=== PATIENT | male | born 1955 | race Caucasian/White ===

== ENCOUNTER 2017-01-16 07:08 | Emergency (ER) | payer OTHER ==
[~2017-01-16] VITALS: Ht 162.6 cm; Wt 70.5 kg
[~2017-01-16 07:08] MED LIST: Artane; DIAZ5TAB4 PO; DICL75TA2 PO; OMEP20CA16 PO; SIN25100 PO; [UNRECOGNIZED DRUG - OTHER]; sinemet; valium
[2017-01-16 07:11] VITALS: Ht 162.6 cm; Wt 70.5 kg
[2017-01-16] MEDS ORDERED: SOD CHLORIDE 0.9% 1,000 ML IV STA (07:39)
[2017-01-16] MEDS ORDERED: DIPHENHYDRAMINE 50 MG INJ IV STA (07:39)
[2017-01-16] MEDS ORDERED: LORAZEPAM 2 MG INJ IV STA (07:39)
--- NOTE | 2017-01-16 08:29 | ERD ---
ER Documentation Chief Complaint Date/Time DATE: 01/16/17 TIME: 08:21 Chief Complaint medication reaction ( vomitting) HPI This is a 62-year-old male with history of Parkinson's disease presenting to the emergency department complaining of abnormal tongue and lip movements and vomiting since this morning. Patient was seen at [facility] yesterday and patient was given a new prescription Comtan (entacapone) and they increased his carbidopa and levodopa dose. He took the medication at 1 AM last night and woke up vomiting 5 times and started having abnormal tongue movements. Patient denies any abdominal pain, chest pain or shortness of breath. ROS All systems reviewed and are negative except as per history of present illness. Medications Home Meds Reported Medications Diclofenac Sodium* (Diclofenac Sodium*) 75 Mg Tablet.dr, 75 MG PO BID, #60 TAB 10/05/15 Diazepam* (Diazepam*) 5 Mg Tablet, 5 MG PO DAILY, TAB 10/05/15 Carbidopa-Levodopa* (Sinemet*) 25-100 Mg Tab, 1 TAB PO QID, TAB 10/05/15 [Artane] No Conflict Check 10/05/15 [sinemet] No Conflict Check 10/05/15 [voltraren] No Conflict Check 10/05/15 [valium] No Conflict Check 10/05/15 Omeprazole* (Omeprazole*) 20 Mg Capsule.dr, 20 MG PO, #60 CAP 10/05/15 Allergies Allergies: Coded Allergies: No Known Allergy (Unverified , 10/05/15) PMhx/Soc History of Surgery: Yes (BILATERAL KNEE LIGAMENT REPAIR) Hx Neurological Disorder: Yes (parkinsons ) Hx Miscellaneous Medical Probl: Yes (PARKINSON'S, ARTHRITIS) Hx Alcohol Use: No Hx Substance Use: No Hx Tobacco Use: No Physical Exam Vitals Vital Signs Date Time Temp Pulse Resp B/P Pulse Ox O2 Delivery O2 Flow Rate FiO2 01/16/17 07:11 98.1 105 19 144/86 100 Physical Exam Const: Well-developed well-nourished no acute distress Head: Atraumatic Eyes: Normal Conjunctiva ENT: Normal External Ears, Nose Patient has signs of dry mouth, abnormal tongue and lip movements. Neck: Full range of motion..~ No meningismus. Resp: Clear to auscultation bilaterally Cardio: Regular rate and rhythm, no murmurs Abd: Soft, non tender, non distended. Normal bowel sounds Skin: No petechiae or rashes Back: No midline or flank tenderness Ext: No cyanosis, or edema Neur: Awake and alert, tremor in hands Psych: Medically anxious Results 24 hrs Current Medications Medications (Trade) Dose Ordered Sig/Pedro Route PRN Reason Start Time Stop Time Status Last Admin Dose Admin Lorazepam (Ativan) 1 mg ONCE STAT IV 01/16/17 07:39 01/16/17 07:40 DC 01/16/17 07:52 Diphenhydramine HCl 50 mg 50 mg ONCE STAT IV 01/16/17 07:39 01/16/17 07:40 DC 01/16/17 07:52 Sodium Chloride (NS) 1,000 ml @ 1,000 mls/hr Q1H STAT IV 01/16/17 07:39 01/16/17 08:38 DC 01/16/17 07:52 Lorazepam (Ativan) 0.5 mg ONCE ONCE IV 01/16/17 09:30 01/16/17 09:31 DC 01/16/17 09:14 Procedures/MDM This is a 62-year-old male with history of Parkinson's disease presenting to the emergency department complaining of abnormal tongue and lip movements and vomiting since this morning. Patient was seen at [facility] yesterday and patient was given a new prescription Comtan (entacapone) and they increased his carbidopa and levodopa dose, in which he took the medications last at 1am. Patient like has acute dystonic reaction versus tardive dyskinesia or other dyskinesia conditions from Comtan. In the ED, IV access established. Patient was given 1 L fluids. He was given 50 mg of Benadryl and 1.5mg Ativan, I have reassessed the patient and he significantly feels a lot better. It was likely a acute dystonic reaction. I have consulted my supervising physician Dr. Farley, in which he suggested patient to discontinue the [place] and continue the carbidopa and levodopa and for him to follow-up with his primary care physician to get a referral to see a neurologist soon as possible. Patient is stable for discharge for home with precautions to return to the emergency room for any worsening signs or symptoms. He understands and agrees with this plan Departure Diagnosis: Primary Impression: Adverse reaction to drug Additional Impression: Dyskinesia Condition: Stable REBECCA CHERY PA-C January 16, 2017 08:29
[2017-01-16] MEDS ORDERED: LORAZEPAM 2 MG INJ IV ONE (09:30)
== END 2017-01-16 10:00 | disposition home or self-care (01) ==
LOC: FTE 07:08
DX: G24.9 Dystonia, unspecified (principal); T42.8X5A Adverse effect of antiparkinsonism drugs and other central muscle-tone depressants, initial encounter; G20 Parkinson's disease
CPT/HCPCS: 96374; 96375; 96376; J1200; J2060; J7030; Z7502

== ENCOUNTER 2017-01-22 14:02 | Emergency (ER) | payer OTHER ==
[~2017-01-22] VITALS: Wt 69.0 kg
[2017-01-22] MEDS ORDERED: CHLORDIAZEPOXIDE 25 MG CAP PO ONE (17:00)
[2017-01-22] MEDS ORDERED: CHLO25CA9 PO (17:23)
--- NOTE | 2017-01-24 05:11 | ERD ---
DATE OF SERVICE: 01/22/2017 HISTORY OF PRESENT ILLNESS: This 62-year-old male comes to the emergency room because he quit drink ing again and is worried about possible alcohol withdrawals. He has a history of alcoholism. He al so has Parkinson disease and has a resting tremor at baseline. He denies any hallucinations. He de nies any nausea, vomiting and denies pain currently. He has never suffered from delirium tremens. He seems to be asking for help with stopping drinking. He was a daily drinker, and his last drink w as the day before yesterday. REVIEW OF SYSTEMS: A 10-point review of systems negative except as in the HPI. PAST MEDICAL HISTORY: Parkinson's disease, arthritis. PAST SURGICAL HISTORY: Bilateral knee ligament repair. SOCIAL HISTORY: He has used alcohol regularly for some time on and off. Denies tobacco, alcohol, a nd other drugs. FAMILY HISTORY: Noncontributory. PHYSICAL EXAMINATION: VITAL SIGNS: Temperature 97.3, pulse 95, blood pressure 120/89, respirations 17, oxygen saturation 99% on room air. GENERAL: No acute distress. HEENT: Normocephalic, atraumatic. Mucous membranes of the mouth are moist. CARDIAC: Regular rate and rhythm. No murmurs. LUNGS: Clear to auscultation bilaterally. EXTREMITIES: No cyanosis or edema. The patient does have bilateral resting tremor that improves wi th intended movement. NEUROLOGIC: Alert and oriented x3, no focal deficits. PSYCHIATRIC: Calm and without apparent depression. EMERGENCY DEPARTMENT COURSE AND MEDICAL DECISION MAKING: The patient has no signs of alcohol withdr awals currently. He has never had delirium tremens. He does not have any signs of current delirium tremens. Here to help him with his renewed intention to quit alcohol. We gave him a 100 mg Libriu m pill in the emergency room. I am going to discharge him with a Librium taper as well. The patien t's daughter arrived in the ER, and the patient and daughter both agree with this plan. The patient is going to be accompanying his daughter home, and she will help care for him. I am discharging [facility] primary care followup within the next 2 to 3 days. I also instructed him and the daughter to virgil ng him back to the emergency room if he starts to have any kind of hallucinations or neurological pr oblems or develops any shaking that is beyond his Parkinson's or cannot tolerate p.o. DISCHARGE DIAGNOSIS: Alcohol withdrawal. DISPOSITION: Home in stable condition. Dictated By: CARL DORMAN Conf#: [id number] DID#: [id number]
== END 2017-01-22 17:51 | disposition home or self-care (01) ==
LOC: E/R 14:02
DX: F10.239 Alcohol dependence with withdrawal, unspecified (principal); G20 Parkinson's disease
CPT/HCPCS: 99283

== ENCOUNTER 2017-02-05 12:53 | Emergency (ER) | payer OTHER ==
[~2017-02-05] VITALS: Ht 157.5 cm; Wt 68.5 kg
[~2017-02-05 12:53] MED LIST changes: +CHLO25CA9 PO
[2017-02-05 13:00] VITALS: Ht 157.5 cm; Wt 68.5 kg
[2017-02-05] MEDS ORDERED: SOD CHLORIDE 0.9% 1,000 ML IV STA (13:44)
[2017-02-05 13:56] LABS: ADD SCAN DIFF NO
[2017-02-05 13:59] LABS: BASOPHILS % 0.6 % (0.0-2.0); EOSINOPHILS # 0.1 10^3/ul (0.0-0.5); EOSINOPHILS % 1.7 % (0.0-7.0); HEMATOCRIT 43.4 % (42.0-52.0); HEMOGLOBIN 14.2 g/dl (14.0-18.0); LYMPHOCYTES % 27.9 % (15.0-51.0); MEAN CORPUSCULAR HEMOGLOBIN 28.1 pg (29.0-33.0); MEAN CORPUSCULAR HGB CONC 32.7 g/dl (32.0-37.0); MEAN CORPUSCULAR VOLUME 85.8 fl (82.0-101.0); MONOCYTE # 0.7 10^3/ul (0.3-0.9); MONOCYTES % 10.2 % (0.0-11.0); NEUTROPHIL # 4.3 10^3/ul (1.6-7.5); NEUTROPHILS % 59.3 % (39.0-77.0); PLATELET COUNT 236 10^3/UL (140-415); RED BLOOD COUNT 5.06 10^6/ul (4.70-6.10); RED CELL DISTRIBUTION WIDTH 15.6 % (11.5-14.5); WHITE BLOOD COUNT 7.3 10^3/ul (4.8-10.8)
[2017-02-05] MEDS ORDERED: LORAZEPAM 2 MG INJ IV ONE (14:00)
[2017-02-05 14:27] LABS: ALANINE AMINOTRANSFERASE 18 IU/L (13-69); ALBUMIN 4.8 g/dl (3.3-4.9); ALBUMIN/GLOBULIN RATIO 1.33; ALKALINE PHOSPHATASE 109 IU/L (42-121); ANION GAP 16 (8-16); ASPARTATE AMINO TRANSFERASE 31 IU/L (15-46); BLOOD UREA NITROGEN 10 mg/dl (7-20); CALCIUM 9.7 mg/dl (8.4-10.2); CARBON DIOXIDE 24 mmol/L (21-31); CHLORIDE 105 mmol/L (97-110); CREATININE 0.81 mg/dl (0.61-1.24); GLUCOSE 105 mg/dl (70-220); MAGNESIUM 1.8 mg/dl (1.7-2.5); POTASSIUM 3.8 mmol/L (3.5-5.1); SODIUM 141 mmol/L (135-144); TOTAL PROTEIN 8.4 g/dl (6.1-8.1)
[2017-02-05 14:43] LABS: TROPONIN-I < 0.012 ng/ml (0.00-0.12)
[2017-02-05 14:57] LABS: THYROID STIMULATING HORMONE 0.786 MIU/L (0.465-4.680)
[2017-02-05] MEDS ORDERED: DIPHENHYDRAMINE 50 MG INJ IV ONE (15:00)
[2017-02-05 15:04] LABS: ADD UMIC YES; URINE BILIRUBIN (Dip) NEGATIVE (NEGATIVE); URINE BLOOD (Dip) NEGATIVE (NEGATIVE); URINE COLOR LT. YELLOW (YELLOW); URINE GLUCOSE (Dip) NEGATIVE (NEGATIVE); URINE KETONES (Dip) 15 (NEGATIVE); URINE LEUKOCYTE ESTERASE (Dip) TRACE (NEGATIVE); URINE NITRITE (Dip) POSITIVE (NEGATIVE); URINE TOTAL PROTEIN (Dip) NEGATIVE (NEGATIVE); URINE UROBILINOGEN (Dip) 0.2 E.U./dL (0.1-1.0)
[2017-02-05 15:13] LABS: BACTERIA,URINE FEW
[2017-02-05 15:51] LABS: BARBITURATES Negative (NEGATIVE); BENZODIAZEPINES Positive (NEGATIVE); CANNABINOIDS Positive (NEGATIVE); COCAINE Negative (NEGATIVE)
[2017-02-05 15:52] LABS: OPIATES Negative (NEGATIVE)
[2017-02-05] MEDS ORDERED: NITROFURANTOIN (SR) 100 MG CAP PO ONE (16:00)
[2017-02-05] MEDS ORDERED: NITR-58 PO (16:05)
--- NOTE | 2017-02-05 16:07 | ERD ---
ER Documentation Chief Complaint Date/Time DATE: 02/05/17 TIME: 16:06 Chief Complaint Complains of weakness and SOB HPI Patient is a 62-year-old male with Parkinson's disease and hypertension who presents with shaking. He is very concerned about his tremor. He does have a history of Parkinson's. He took carbidopa levodopa starting 2 weeks ago. He has a dry mouth. He said that he is urinating every 5 seconds. Upon review of old medical records this is the patient's fourth visit to the ER since 2016. His primary doctor is Dr. Vigil. ROS All systems reviewed and are negative except as per history of present illness. Medications Home Meds Active Scripts Nitrofurantoin Monohyd Macrocr* (Macrobid*) 100 Mg Capsr, 100 MG PO BID for 7 Days, CAP Prov:ALLYSSA PATINO MD 02/05/17 Reported Medications Diclofenac Sodium* (Diclofenac Sodium*) 75 Mg Tablet.dr, 75 MG PO BID, #60 TAB 10/05/15 Diazepam* (Diazepam*) 5 Mg Tablet, 5 MG PO DAILY, TAB 10/05/15 Carbidopa-Levodopa* (Sinemet*) 25-100 Mg Tab, 1 TAB PO QID, TAB 10/05/15 Omeprazole* (Omeprazole*) 20 Mg Capsule.dr, 20 MG PO, #60 CAP 10/05/15 Discontinued Reported Medications [Artane] No Conflict Check 10/05/15 [sinemet] No Conflict Check 10/05/15 [voltraren] No Conflict Check 10/05/15 [valium] No Conflict Check 10/05/15 Discontinued Scripts Chlordiazepoxide* (Chlordiazepoxide*) 25 Mg Capsule, 25 MG PO DAILY, #14 CAP [place] 3 pastillas Sabado y Mika [place] 2 pastillas Lunes y lenora [place] 1 pastilla miercoles y jueves Prov:CARL MORALES DO 01/22/17 Allergies Allergies: Coded Allergies: No Known Allergy (Unverified , 10/05/15) PMhx/Soc History of Surgery: Yes (BILATERAL KNEE LIGAMENT REPAIR) Hx Neurological Disorder: Yes (parkinsons ) Hx Miscellaneous Medical Probl: Yes (PARKINSON'S, ARTHRITIS) Hx Alcohol Use: Yes (ABUSE ) Hx Substance Use: No Hx Tobacco Use: No Smoking Status: Current every day smoker FmHx Family History: No diabetes Physical Exam Vitals Vital Signs Date Time Temp Pulse Resp B/P Pulse Ox O2 Delivery O2 Flow Rate FiO2 02/05/17 16:23 97.8 80 16 149/98 100 Room Air 02/05/17 14:07 85 18 140/89 100 Room Air 02/05/17 13:00 98.0 98 20 150/85 99 Physical Exam Const: Anxious Head: Atraumatic Eyes: Normal Conjunctiva ENT: Normal External Ears, Nose and Mouth. Neck: Full range of motion..~ No meningismus. Resp: Clear to auscultation bilaterally Cardio: Regular rate and rhythm, no murmurs Abd: Soft, non tender, non distended. Normal bowel sounds Skin: No petechiae or rashes Back: No midline or flank tenderness Ext: No cyanosis, or edema Neur: Awake and alert, tremor consistent with Parkinson's Psych: Anxious without suicidal thoughts Result Diagram: 02/05/17 1350 02/05/17 1350 Results 24 hrs Laboratory Tests Test 02/05/17 13:43 02/05/17 13:50 02/05/17 14:48 Bedside Glucose 94mg/dL White Blood Count 7.310^3/ul Red Blood Count 5.0610^6/ul Hemoglobin 14.2g/dl Hematocrit 43.4% Mean Corpuscular Volume 85.8fl Mean Corpuscular Hemoglobin 28.1pg Mean Corpuscular Hemoglobin Concent 32.7g/dl Red Cell Distribution Width 15.6% Platelet Count 16387^3/UL Mean Platelet Volume 10.0fl Neutrophils % 59.3% Lymphocytes % 27.9% Monocytes % 10.2% Eosinophils % 1.7% Basophils % 0.6% Nucleated Red Blood Cells % 0.0/100WBC Neutrophils # 4.310^3/ul Lymphocytes # 2.010^3/ul Monocytes # 0.710^3/ul Eosinophils # 0.110^3/ul Basophils # 0.010^3/ul Nucleated Red Blood Cells # 0.010^3/ul Sodium Level 141mmol/L Potassium Level 3.8mmol/L Chloride Level 105mmol/L Carbon Dioxide Level 24mmol/L Anion Gap 16 Blood Urea Nitrogen 10mg/dl Creatinine 0.81mg/dl Glucose Level 105mg/dl Calcium Level 9.7mg/dl Magnesium Level 1.8mg/dl Total Bilirubin 1.0mg/dl Direct Bilirubin 0.00mg/dl Indirect Bilirubin 1.0mg/dl Aspartate Amino Transf (AST/SGOT) 31IU/L Alanine Aminotransferase (ALT/SGPT) 18IU/L Alkaline Phosphatase 109IU/L Troponin I < 0.012ng/ml Total Protein 8.4g/dl Albumin 4.8g/dl Globulin 3.60g/dl Albumin/Globulin Ratio 1.33 Lipase 117U/L Thyroid Stimulating Hormone (TSH) 0.786MIU/L Ethyl Alcohol Level < 10.0mg/dl Urine Color LT. YELLOW Urine Clarity CLEAR Urine pH 7.5 Urine Specific [place] 1.010 Urine Ketones 15 Urine Nitrite POSITIVE Urine Bilirubin NEGATIVE Urine Urobilinogen 0.2 E.U./dL Urine Leukocyte Esterase TRACE Urine Microscopic RBC 5-10/HPF Urine Microscopic WBC 10-25/HPF Urine Epithelial Cells RARE Urine Bacteria FEW Urine Hemoglobin NEGATIVE Urine Glucose NEGATIVE% Urine Total Protein NEGATIVE Urine Opiates Screen Negative Urine Barbiturates Negative Urine Amphetamines Screen Negative Urine Benzodiazepines Screen Positive Urine Cocaine Screen Negative Urine Cannabinoids Positive Current Medications Medications (Trade) Dose Ordered Sig/Pedro Route PRN Reason Start Time Stop Time Status Last Admin Dose Admin Sodium Chloride (NS) 1,000 ml @ 1,000 mls/hr Q1H STAT IV 02/05/17 13:44 02/05/17 14:43 DC 02/05/17 13:55 Lorazepam (Ativan) 1 mg ONCE ONCE IV 02/05/17 14:00 02/05/17 14:01 DC 02/05/17 13:55 Diphenhydramine HCl (Benadryl) 25 mg ONCE ONCE IV 02/05/17 15:00 02/05/17 15:01 DC 02/05/17 14:57 Nitrofurantoin Macrocrystals (Macrobid) 100 mg ONCE ONCE PO 02/05/17 16:00 02/05/17 16:01 DC 02/05/17 15:46 Procedures/MDM EKG read by me: Rate/Rhythm: Regular rate and rhythm at a rate of 83 Intervals: Normal Impression: No evidence of ischemia or arrhythmia Patient is a 62-year-old male presents with Parkinson's tremor. I believe he is concerned about his tremor and I try to explain to him that this is a normal Parkinson's tremor. I believe he has anxiety as well. His urinalysis does show signs of cystitis which is probably why he is having frequent urination. Patient was given Macrobid in the emergency department and will be treated with Macrobid twice a day for 1 week. His laboratory studies are basically normal and I believe outpatient management is appropriate at this time. He was given a copy of his laboratory studies and will be discharged home with Macrobid. He should follow-up with Dr. Vigil within 24-48 hours for reevaluation. He can return sooner for any worsening symptoms. His alcohol level was negative. Departure Diagnosis: Primary Impression: Cystitis Additional Impressions: Anxiety Parkinsons Condition: Fair Patient Instructions: Parkinson's Disease, Cystitis, Anxiety Reaction Additional Instructions: Llame al doctor MAANA y mary jo marcus RAJIV PARA DENTRO DE 1-2 SINCLAIR.Dgale a la secretaria que nosotros le instruimos hacer esta rajiv.Avise o llame si chandler condicin se empeora antes de la rajiv. Regresa aqui si peor o no mejor. ALLYSSA PATINO MD Feb 05, 2017 16:07
[2017-02-05 16:23] VITALS: BP 149/98; PULSE 80; RESP 16; TEMP 97.8
[2017-02-05 16:56] LABS: ETHANOL < 10.0 mg/dl
== END 2017-02-05 16:24 | disposition home or self-care (01) ==
LOC: E/R 12:53
DX: N30.90 Cystitis, unspecified without hematuria (principal); F41.9 Anxiety disorder, unspecified; G20 Parkinson's disease; R40.2142 Coma scale, eyes open, spontaneous, at arrival to emergency department; R40.2242 Coma scale, best verbal response, confused conversation, at arrival to emergency department; R40.2362 Coma scale, best motor response, obeys commands, at arrival to emergency department; I10 Essential (primary) hypertension; F17.210 Nicotine dependence, cigarettes, uncomplicated
CPT/HCPCS: 80053; 80306; 80307; 81001; 82962; 83690; 83735; 84439; 84443; 84484; 85025; J1200; J2060; J7030; Z7610; 36415; 93005; 96361; 96374; 96375

== ENCOUNTER → 2017-06-01 | Outpatient (CLI) | payer OTHER ==
[~2017-06-01] MED LIST changes: -Artane; -CHLO25CA9 PO; +NITR-58 PO; -[UNRECOGNIZED DRUG - OTHER]; -sinemet; -valium
--- NOTE | 2017-06-01 17:46 | RADRPT ---
PROCEDURE: XR Knees. CLINICAL INDICATION: Bilateral knee pain. TECHNIQUE: Total of six views. Frontal, oblique, and lateral views of both knees. COMPARISON: No prior study is available for comparison. FINDINGS: There is no fracture or dislocation. Vascular calcifications are present consistent with atherosclerosis. There are small bilateral knee joint effusions. There are degenerative changes with osteophytes arising from all 3 joint compartment margins bilater ally. There is joint space narrowing, subarticular sclerosis, and deformity involving both medial rohith int compartments patellofemoral joint compartments. There is no lytic or blastic lesion. There is no radiopaque foreign body. IMPRESSION: 1. Atherosclerosis. 2. Small bilateral joint effusions. 3. Severe degenerative changes of both knees. RPTAT: QQ .Modesto Fontanez MD, Date Time Electronically viewed and signed by .Modesto Fontanez MD, on 06/01/2017 17:46 .R/
--- NOTE | 2017-06-01 18:30 | HKNOTE ---
DATE OF SERVICE: 06/01/2017 MAIN COMPLAINT: Bilateral knee pain. HISTORY OF MAIN COMPLAINT: This is a 62-year-old male complaining of severe pain in both knees. He states that the pain has been ongoing for the last 5 years. There are no alleviating factors. He has difficulty ambulating. He has difficulty performing his activities of daily living. He does not use any assistive devices. He has a history of Parkinson disease. He has had previous injections, including viscosupplementation by Dr. Fernanda Little. Otherwise, he has no complaints. He denies any groin pain or back pain. Gait: Antalgic gait. No use of assistive devices. Left knee varus alignment. Tender over the medial and lateral joint lines; -15 to 90 degrees range of motion. Stable to varus/valgus stress. Negative anterior drawer. Negative posterior drawer. Negative Yareli; 5/5 hamstrings, quadriceps, tibialis anterior, gastrocsoleus. Right knee exam: Tender over the medial and lateral joint lines; -15 to 90 degrees range of motion. Stable to varus/valgus stress. Negative anterior drawer. Negative posterior drawer. Negative Yareli; 5/5 hamstrings, quadriceps, tibialis anterior, gastrocsoleus. Bilateral hip exam within normal limits. IMAGIN. X-rays, right knee: Three views of the right knee demonstrate tricompartmental osteoarthritis of the right knee. 2. X-rays, left knee: Three views of the left knee demonstrate tricompartmental osteoarthritis of the left knee. IMPRESSION: A 62-year-old male with advanced tricompartmental osteoarthritis of bilateral knees. PLAN: I discussed treatment options to Mr. Ro. I explained to him that he has advanced arthritis of his knees. He is not interested in surgery at this time. He will follow up as needed in the future. Dictated By: Eligio Kaur MD /[email or web address] /Document#: [id number]
== END | disposition home or self-care (01) ==
LOC: HKI 13:38
PROVIDERS: ATTEND Orthopaedic Surgery Adult Reconstructive Orthopaedic Surgery
DX: M17.0 Bilateral primary osteoarthritis of knee (principal)
CPT/HCPCS: 73562; Z7500; G0463

== ENCOUNTER → 2017-07-06 | Outpatient (CLI) | payer OTHER ==
--- NOTE | 2017-07-07 02:34 | HKNOTE ---
DATE OF SERVICE: 07/06/2017 CHIEF COMPLAINT: Bilateral knee pain. HISTORY OF PRESENT ILLNESS: This is a 62-year-old male with a history of Parkinson's disease with b ilateral knee osteoarthritis. He is using a walker for ambulation. He has difficulty performing hi s activities of daily living. He has had previous injections including viscosupplementation without pain relief. He denies any groin or back pain. GAIT: Antalgic gait, reciprocal gait pattern. PHYSICAL EXAMINATION: LEFT KNEE: Varus alignment. Tender over the medial and lateral joint lines, -15 to 90 degrees rang e of motion, stable to varus and valgus stress. Negative Yareli, negative anterior drawer, negativ e posterior drawer. RIGHT KNEE: Varus alignment. Tender over the medial and lateral joint lines, -15 to 90 degrees ran ge of motion, stable to varus and valgus stress. Negative Yareli, negative anterior drawer, negati ve posterior drawer, negative Tatiana's. Motor strength 5/5, hamstrings, quadriceps, tibialis ante rior, gastroc soleus bilaterally. IMAGING: X-rays bilateral knees. There is tricompartmental osteoarthritis with joint space narrowi ng. IMPRESSIN: A 62-year-old male with advanced tricompartmental osteoarthritis of bilateral knees, who has failed nonoperative management. PLAN: I discussed treatment options with Mr. Ro. He would like to proceed with a total knee a rthroplasty. We will request authorization for left total knee arthroplasty. He will follow up pen ding his authorization. Dictated By: GIFTY VIGIL/PREMA Conf#: [id number] DID#: [id number]
== END | disposition home or self-care (01) ==
LOC: HKI 14:50
PROVIDERS: ATTEND Orthopaedic Surgery Adult Reconstructive Orthopaedic Surgery
DX: M17.0 Bilateral primary osteoarthritis of knee (principal); G20 Parkinson's disease
CPT/HCPCS: G0463

== ENCOUNTER → 2017-10-04 | Outpatient (CLI) | END | disposition home or self-care (01) ==

== ENCOUNTER 2017-10-06 05:52 | Inpatient (IN) | END 2017-10-08 14:03 | disposition home health service (06) | DRG 470 ==

== ENCOUNTER 2017-10-12 21:32 | Emergency (ER) | END 2017-10-12 23:00 | disposition left against medical advice (07) ==

== ENCOUNTER → 2017-10-21 | Outpatient (CLI) | END | disposition home or self-care (01) ==

== ENCOUNTER → 2017-11-18 | Outpatient (CLI) | END | disposition home or self-care (01) ==

== ENCOUNTER 2017-12-01 01:07 | Inpatient (IN) | END 2017-12-02 14:28 | disposition home or self-care (01) | DRG 57 ==

== ENCOUNTER 2018-03-06 20:46 | Inpatient (IN) | END 2018-03-07 17:29 | disposition left against medical advice (07) | DRG 57 ==

== ENCOUNTER 2018-03-26 00:06 | Observation (INO) | END 2018-03-29 17:42 | disposition home or self-care (01) ==

== ENCOUNTER → 2018-05-16 | Outpatient (CLI) | END | disposition home or self-care (01) ==

== ENCOUNTER 2019-01-29 11:33 | Emergency (ER) | payer OTHER ==
[~2019-01-29] VITALS: Wt 80.0 kg
[~2019-01-29 11:33] MED LIST changes: -DIAZ5TAB4 PO; -DICL75TA2 PO; +GABA300C16 PO; +LORA1TAB PO; -NITR-58 PO; -SIN25100 PO; +SIN50200 PO
[2019-01-29] MEDS ORDERED: ALBUTEROL 0.083% (NEB) 2.5 MG/3 ML AMP NEB STA (12:09)
[2019-01-29] MEDS ORDERED: IPRATROPIUM (NEB) 0.5 MG/2.5 ML AMP NEB STA (12:09)
[2019-01-29] MEDS ORDERED: LORAZEPAM 1 MG TAB PO ONE (12:30)
[2019-01-29] MEDS ORDERED: LORA-444 PO (12:38)
[2019-01-29] MEDS ORDERED: SIN50200 PO (12:39)
[2019-01-29] MEDS ORDERED: OXYB5TAB7 PO (12:40)
[2019-01-29] MEDS ORDERED: TAMS-14 PO (12:40)
[2019-01-29] MEDS ORDERED: OMEP40CA6 PO (12:41)
[2019-01-29] MEDS ORDERED: DOCU-210 PO (12:41)
[2019-01-29] MEDS ORDERED: ACET1TAB40 PO (12:42)
[2019-01-29] MEDS ORDERED: ALBU8.5H8 INH (12:53)
[2019-01-29] MEDS ORDERED: LORA1TAB PO (12:53)
--- NOTE | 2019-01-29 13:16 | ERD ---
ER Documentation Chief Complaint Chief Complaint PANICK ATTACK HPI This is a 64-year-old male with a past medical history of hypertension. The patient indicates that he also has a known history of anxiety. The patient presented to the emergency department stating he was feeling very nervous and anxious and shaky for several days which has progressively worsened. He was experiencing palpitations with no chest pain or pressure. He also stated he was having difficulty breathing. He states the difficulty breathing has been pre sent for the past 5 months. He denies tobacco use. He states the difficulty in breathing occurs when he is feeling these episodes of panic. He denies any suicidal homicidal thoughts or ideations. He denies any recent travel or prolonged immobilization. The patient denies any shortness of breath at rest or exertion. He denies a productive or nonproductive cough. He has had no fevers or shaking or chills. He denies a headache or neck pain. The patient does indicate he has been prescribed Ativan in the past for his anxiety. He ran out of his medications and has not taken any benzodiazepines for his symptoms. ROS All systems reviewed and are negative except as per history of present illness. Medications Home Meds Active Scripts Albuterol Sulfate* (Proair HFA*) 8.5 Gm Hfa.aer.ad, 2 PUFF INH Q6H PRN for WHEEZING AND SOB, #1 INHALER Prov:ARTURO MCPHERSON MD 01/29/19 Lorazepam* (Lorazepam*) 1 Mg Tablet, 1 MG PO Q8H PRN for ANXIETY, #10 TAB Prov:ARTURO MCPHERSON MD 01/29/19 Reported Medications Acetaminophen with Codeine (Acetaminophen-Cod #3 Tablet) 1 Each Tablet, 1 TAB PO NEEDED, #7 TAB 01/29/19 Omeprazole* (Omeprazole*) 40 Mg Capsule.dr, 40 MG PO DAILY, #30 CAP 01/29/19 Docusate Sodium (Col-Rite) 100 Mg Capsule, 100 MG PO TID, CAP 01/29/19 Tamsulosin Hcl* (Flomax*) 0.4 Mg Cap.er.24h, 0.4 MG PO HS, CAP 01/29/19 Oxybutynin Chloride* (Ditropan*) 5 Mg Tab, 5 MG PO DAILY, TAB 01/29/19 Carbidopa-Levodopa* (Sinemet CR*) 50-200 Mg Tabsr, 2 TAB PO 5 TIMES DAILY, TAB 01/29/19 Lorazepam* (Ativan*) 2 Mg Tablet, 2 MG PO Q6 PRN for ANXIETY, #60 TAB 01/29/19 Discontinued Reported Medications Lorazepam* (Lorazepam*) 1 Mg Tablet, 2 MG PO Q8, #60 TAB 03/29/18 Carbidopa-Levodopa* (Sinemet CR*) 50-200 Mg Tabsr, 2 TAB PO 0700,1100,1500,1900 for 1 Day, TAB 03/29/18 Gabapentin* (Gabapentin*) 300 Mg Capsule, 600 MG PO TID, #90 CAP 10/06/17 Omeprazole* (Omeprazole*) 20 Mg Capsule.dr, 20 MG PO, #60 CAP 10/05/15 Allergies Allergies: Coded Allergies: No Known Allergy (Unverified , 01/29/19) PMhx/Soc History of Surgery: Yes (KNEE SX) Anesthesia Reaction: No Hx Neurological Disorder: Yes (PARKINSON'S) Hx Respiratory Disorders: No Hx Cardiac Disorders: Yes (HTN) Hx Psychiatric Problems: No Hx Miscellaneous Medical Probl: No Hx Alcohol Use: No Hx Substance Use: Yes Hx Tobacco Use: Yes Smoking Status: Former smoker Physical Exam Vitals Vital Signs Date Temp Pulse Resp B/P (MAP) Pulse Ox O2 O2 Flow FiO2 Time Delivery Rate 01/29/19 82 20 95 21 12:32 01/29/19 98.1 81 18 147/81 99 11:37 (103) Physical Exam Constitutional:Well-developed. Well-nourished. HEENT:Normocephalic. Atraumatic.Pupils were equal round reactive to light. Moist mucous membranes.No tonsillar exudates. Neck: No nuchal rigidity. No lymphadenopathy. No posterior cervical spine tenderness or step-offs. Respiratory: Not using accessory muscles of respiration.Lungs were clear to auscultation bilaterally. No rhonchi. No rales. No wheezing. Cardiovascular: Regular rate regular rhythm.No murmurs. No rubs were appreciated.S1, S2 normal. Distal pulses are palpable 2+ bilaterally. GI: Abdomen was soft. Nontender. Non Distended. No pulsatile abdominal masses or bruits. No rebound. No guarding. Bowel sounds were present and normal. Muscle skeletal: Full range of motion of both the upper and lower extremities bilaterally.Normal muscle tone.No assymetrical calf tenderness or swelling. Skin: No petechia, no purpura. No lesions on the palms or the soles of the feet. No maculopapular rash. NEURO: Patient was alert, awake, orientated x3.No facial droop. Gait observed and normal with no ataxia.Speech had regular rate and rhythm. No focal neurologi aggie deficits. PSYCH: The patient appeared very anxious with a tremor. Spoke very rapidly . to be anxious but denied any suicidal homicidal thoughts or ideations. Result Diagram: 01/29/19 1229 01/29/19 1229 Results 24 hrs Laboratory Tests Test 01/29/19 12:29 White Blood Count 6.2 10^3/ul Red Blood Count 5.38 10^6/ul Hemoglobin 15.3 g/dl Hematocrit 47.2 % Mean Corpuscular Volume 87.7 fl Mean Corpuscular Hemoglobin 28.4 pg Mean Corpuscular Hemoglobin Concent 32.4 g/dl Red Cell Distribution Width 14.6 % Platelet Count 201 10^3/UL Mean Platelet Volume 9.4 fl Immature Granulocytes % 0.200 % Neutrophils % 66.7 % Lymphocytes % 26.2 % Monocytes % 6.1 % Eosinophils % 0.0 % Basophils % 0.8 % Nucleated Red Blood Cells % 0.0 /100WBC Immature Granulocytes # 0.010 10^3/ul Neutrophils # 4.1 10^3/ul Lymphocytes # 1.6 10^3/ul Monocytes # 0.4 10^3/ul Eosinophils # 0.0 10^3/ul Basophils # 0.1 10^3/ul Nucleated Red Blood Cells # 0.0 10^3/ul Prothrombin Time 13.5 Sec Prothrombin Time Ratio 1.1 INR International Normalized Ratio 1.02 Activated Partial Thromboplast Time 28.9 Sec Sodium Level 141 mmol/L Potassium Level 4.1 mmol/L Chloride Level 105 mmol/L Carbon Dioxide Level 25 mmol/L Anion Gap 11 Blood Urea Nitrogen 20 mg/dl Creatinine 0.99 mg/dl Est Glomerular Filtrat Rate mL/min > 60 mL/min Glucose Level 106 mg/dl Calcium Level 9.7 mg/dl Total Bilirubin 2.2 mg/dl Direct Bilirubin 0.00 mg/dl Indirect Bilirubin 2.2 mg/dl Aspartate Amino Transf (AST/SGOT) 31 IU/L Alanine Aminotransferase (ALT/SGPT) 34 IU/L Alkaline Phosphatase 67 IU/L Troponin I Pending Total Protein 7.9 g/dl Albumin 4.5 g/dl Globulin 3.40 g/dl Albumin/Globulin Ratio 1.32 Current Medications Medications Dose Sig/Pedro Start Time Status Last (Trade) Ordered Route PRN Stop Time Admin Dose Reason Admin Lorazepam 1 mg ONCE ONCE 01/29/19 DC 01/29/19 (Ativan) PO 12:30 01/29/19 12:54 12:31 Albuterol 5 mg ONCE STAT 01/29/19 DC 01/29/19 (Proventil NEB 12:09 01/29/19 12:28 0.083% (Neb)) 12:11 Ipratropium 0.5 mg ONCE STAT 01/29/19 DC 01/29/19 [place] NEB 12:09 01/29/19 12:29 (Atrovent 12:11 0.02% (Neb)) Procedures/MDM The patient presented to the emergency department with dyspnea. My differential diagnosis included but was not limited to upper airway obstruction, CHF, pulmonary embolism, cardiac ischemia, pneumonia, pneumothorax, anemia, drug o verdose, pulmonary edema, COPD or asthma. I obtained a chest radiograph there is no infiltrates no pneumothorax or pleural effusions. There is mild elevation of the right hemidiaphragm. The patient was given a nebulizer treatment. He did state that this improved his breathing. The patient was not hypoxic. Given placed on a sustainability specialist. He had no arrhythmias. 12 Lead EKG tracing ordered and reviewed by myself showed: Sinus tachycardia 103 bpm and no arrhythmia. TX interval normal. QRS duration normal. No ST segment elevation No ST segment depression. No changes consistent with acute ischemia. The patient had no leukocytosis to suggest sepsis or infectious process such as pneumonia. The patient had no electrolyte abnormalities. The patient did appear very anxious. I felt this was a component of an acute anxiety reaction and shortness of breath that is exacerbated by this reaction. He had no risk factors for congestive heart failure or pulmonary embolism. He did receive Ativan p.o. his symptoms have improved. He was not suicidal or homicidal. He lives with his daughter and is able to attend to his activities of daily living. I will provide a prescription of Ativan to take as needed as well as an inhaler as needed. The patient was discharged home in fair condition. They were instructed to return to the emergency department at any time if there was any worsening of their condition. The patient stated they would follow up with their PCP in the next 24-48 hours to initiate a suitable medication regimen under the care of their PCP as well as to allow their PCP to monitor any drug reactions. The patient was discharged home with prescriptions after they gave informed consent to the new medication. They were also fully informed by myself on the adverse effects and adverse drug interactions in order to provide adequate safeguards to prevent possible adverse reactions to medications. Departure Diagnosis: Primary Impression: Anxiety attack Condition: Fair Patient Instructions: Coping with Shortness of Breath: Controlling Stress, Anxiety Reaction Referrals: MARITZA LEE (PCP) ARTURO MCPHERSON MD Jan 29, 2019 13:14
[2019-01-29 14:50] VITALS: BP 123/74; PULSE 107; RESP 23
== END 2019-01-29 14:53 | disposition home or self-care (01) ==
LOC: E/R 11:33
DX: F41.9 Anxiety disorder, unspecified (principal); R40.2142 Coma scale, eyes open, spontaneous, at arrival to emergency department; R40.2252 Coma scale, best verbal response, oriented, at arrival to emergency department; R40.2362 Coma scale, best motor response, obeys commands, at arrival to emergency department; I10 Essential (primary) hypertension; G20 Parkinson's disease; R10.9 Unspecified abdominal pain; Z87.891 Personal history of nicotine dependence
CPT/HCPCS: 71045; 80053; 83880; 84484; 85025; 85610; 85730; 93005; 94664; Z7502; Z7610

== ENCOUNTER 2019-01-31 06:40 | Emergency (ER) | payer OTHER ==
[~2019-01-31] VITALS: Ht 170.2 cm; Wt 70.0 kg
[~2019-01-31 06:40] MED LIST changes: +ACET1TAB40 PO; +ALBU8.5H8 INH; +DOCU-210 PO; -GABA300C16 PO; +LORA-444 PO; -OMEP20CA16 PO; +OMEP40CA6 PO; +OXYB5TAB7 PO; +TAMS-14 PO
[2019-01-31 06:51] VITALS: Ht 170.2 cm; Wt 70.0 kg
[2019-01-31] MEDS ORDERED: LORAZEPAM 2 MG INJ IV ONE (07:00)
--- NOTE | 2019-01-31 07:07 | ERD ---
ER Documentation Chief Complaint Chief Complaint BIB [facility] FOR FEELING THAT "SOMETHING IS STUCK IN THROAT". NO RESP DISTRESS HPI This is a 64-year-old gentleman with reported history of hypertension and Parkinson's disease who presents to the emergency room complaining of anxiety, tremor and a sensation that there is a piece of rice stuck in his throat. Patient is a very poor historian. He has a severe shaking tremor that appears to be somewhat intentional. With the patient is distracted the tremor stops. Patient states that he yesterday evening ate a piece of rice and felt like it got stuck in his throat. He states that he cannot drink but he drinks an entire glass of water upon arrival. Patient denies any drooling or fevers or chills. He was seen here 2 days ago for similar presentation of anxiety. He denies any chest pain or chest pressure. No fevers or chills. ROS All systems reviewed and are negative except as per history of present illness. Medications Home Meds Active Scripts Albuterol Sulfate* (Proair HFA*) 8.5 Gm Hfa.aer.ad, 2 PUFF INH Q6H PRN for WHEEZING AND SOB, #1 INHALER Prov:ARTURO MCPHERSON MD 01/29/19 Lorazepam* (Lorazepam*) 1 Mg Tablet, 1 MG PO Q8H PRN for ANXIETY, #10 TAB Prov:RATURO MCPHERSON MD 01/29/19 Reported Medications Acetaminophen with Codeine (Acetaminophen-Cod #3 Tablet) 1 Each Tablet, 1 TAB PO NEEDED, #7 TAB 01/29/19 Omeprazole* (Omeprazole*) 40 Mg Capsule.dr, 40 MG PO DAILY, #30 CAP 01/29/19 Docusate Sodium (Col-Rite) 100 Mg Capsule, 100 MG PO TID, CAP 01/29/19 Tamsulosin Hcl* (Flomax*) 0.4 Mg Cap.er.24h, 0.4 MG PO HS, CAP 01/29/19 Oxybutynin Chloride* (Ditropan*) 5 Mg Tab, 5 MG PO DAILY, TAB 01/29/19 Carbidopa-Levodopa* (Sinemet CR*) 50-200 Mg Tabsr, 2 TAB PO 5 TIMES DAILY, TAB 01/29/19 Lorazepam* (Ativan*) 2 Mg Tablet, 2 MG PO Q6 PRN for ANXIETY, #60 TAB 01/29/19 Discontinued Reported Medications Lorazepam* (Lorazepam*) 1 Mg Tablet, 2 MG PO Q8, #60 TAB 03/29/18 Carbidopa-Levodopa* (Sinemet CR*) 50-200 Mg Tabsr, 2 TAB PO 0700,1100,1500,1900 for 1 Day, TAB 03/29/18 Gabapentin* (Gabapentin*) 300 Mg Capsule, 600 MG PO TID, #90 CAP 10/06/17 Omeprazole* (Omeprazole*) 20 Mg Capsule.dr, 20 MG PO, #60 CAP 10/05/15 Allergies Allergies: Coded Allergies: No Known Allergy (Unverified , 01/29/19) PMhx/Soc History of Surgery: Yes (KNEE SX) Anesthesia Reaction: No Hx Neurological Disorder: Yes (PARKINSON'S) Hx Respiratory Disorders: No Hx Cardiac Disorders: Yes (HTN) Hx Psychiatric Problems: No Hx Miscellaneous Medical Probl: No Hx Alcohol Use: No Hx Substance Use: Yes Hx Tobacco Use: Yes FmHx Family History: No diabetes Physical Exam Vitals Vital Signs Date Temp Pulse Resp B/P (MAP) Pulse Ox O2 O2 Flow FiO2 Time Delivery Rate 01/31/19 90 18 111/76 94 Room Air 08:07 (88) 01/31/19 98.4 109 20 177/100 99 06:51 (125) Physical Exam General: Patient does not have a significant pill-rolling tremor but has shakiness that appears to be somewhat intentional. Extremely anxious Head: Normocephalic, atraumatic. Eyes: Pupils equally reactive, EOM intact ENT: Moist mucous membranes, posterior pharynx without uvular swelling or evidence of foreign body. Tolerating secretions. Submental but space is soft. Neck: Supple, no lymphadenopathy Respiratory: Lungs clear bilaterally, no distress Cardiovascular: RRR, no murmurs, rubs, or gallops Abdominal: Soft, non-tender, non-distended, no peritoneal signs : Deferred MSK: No edema, no unilateral swelling, 5/5 strength Neurologic: Limited exam, anxious, moving all extremities without focal deficit. The patient has a tremor but has episodes where it seems like he is moving his arms intentionally. Skin: No rash Psych: Extremely anxious Result Diagram: 01/31/19 0655 01/31/19 0655 Results 24 hrs Laboratory Tests Test 01/31/19 06:55 White Blood Count 7.4 10^3/ul Red Blood Count 5.23 10^6/ul Hemoglobin 15.1 g/dl Hematocrit 45.1 % Mean Corpuscular Volume 86.2 fl Mean Corpuscular Hemoglobin 28.9 pg Mean Corpuscular Hemoglobin Concent 33.5 g/dl Red Cell Distribution Width 14.3 % Platelet Count 202 10^3/UL Mean Platelet Volume 9.6 fl Immature Granulocytes % 0.300 % Neutrophils % 63.1 % Lymphocytes % 26.9 % Monocytes % 8.5 % Eosinophils % 0.3 % Basophils % 0.9 % Nucleated Red Blood Cells % 0.0 /100WBC Immature Granulocytes # 0.020 10^3/ul Neutrophils # 4.7 10^3/ul Lymphocytes # 2.0 10^3/ul Monocytes # 0.6 10^3/ul Eosinophils # 0.0 10^3/ul Basophils # 0.1 10^3/ul Nucleated Red Blood Cells # 0.0 10^3/ul Sodium Level 137 mmol/L Potassium Level 4.7 mmol/L Chloride Level 103 mmol/L Carbon Dioxide Level 21 mmol/L Anion Gap 13 Blood Urea Nitrogen 17 mg/dl Creatinine 0.84 mg/dl Est Glomerular Filtrat Rate mL/min > 60 mL/min Glucose Level 111 mg/dl Calcium Level 9.2 mg/dl Current Medications Medications Dose Sig/Pedro Start Time Status Last (Trade) Ordered Route PRN Stop Time Admin Dose Reason Admin Lorazepam 1 mg ONCE ONCE 01/31/19 DC 01/31/19 (Ativan) IV 07:00 01/31/19 07:01 07:01 Procedures/MDM EKG, MONITORS, & DIAGNOSTIC IMAGING: CT neck soft tissue: IMPRESSION: 1. No radiopaque foreign body, inflammatory process, soft tissue mass, or pathologically enlarged lymphadenopathy. 2. Severe disc height loss with enthesopathy changes involving C4-C5 through C6- 7. 3. Degenerative straightening of the normal cervical lordosis. 4. Mild atherosclerotic calcifications of the bilateral carotid bulbs and proxi mal right external carotid artery. LAB INTERPRETATION: I reviewed the laboratory testing and it shows no evidence of acute process MEDICAL DECISION MAKING: Patient presents with what appears to be anxiety. He states that he feels like there is a piece of rice stuck in the back of his throat however he drinks an entire glass of water immediately upon arrival. There is an extreme anxiety component to his presentation and his foreign body sensation may be globus hystericus. Patient exhibits no signs or symptoms concerning for deep space infection. Patient does have a tremor and does take Parkinson's type medications however he does have these episodes where it seems like he has intentional shaking of his upper extremities. I believe anxiety is playing a large role in his presentation today. No signs or symptoms concerning for emergent medical condition. The patient is convinced that there is something stuck in his throat therefore CT of the soft tissue of the neck will be obtained however there is possibility of abrasion again and again possibly globus hystericus. ER COURSE: * Anxiolysis provided * Patient much improved. The patient has tolerated oral intake. No evidence of obstruction or aspiration. The patient can be safely discharged with nonemergent ENT follow-up if symptoms persist. Consider abrasion of the posterior pharynx versus anxiety. CONSULTATION: None DISPOSITION PLAN: The patient does not have an identifiable emergent medical condition that warrants inpatient hospitalization at this time. The patient is deemed safe for discharge with outpatient follow-up. We discussed follow up with the patient's primary care doctor within 24 to 48 hours as needed. We also discussed return to the emergency room for worsening symptoms or worsening condition. Outpatient referral: ENT as needed Discharge Medications: None required Departure Diagnosis: Primary Impression: Anxiety reaction Additional Impression: Globus hystericus Condition: IVET Lozoya MD Jan 31, 2019 07:07
[2019-01-31 10:15] VITALS: BP 144/81; PULSE 96; RESP 16
== END 2019-01-31 10:53 | disposition home or self-care (01) ==
LOC: E/R 06:40
DX: F41.9 Anxiety disorder, unspecified (principal); R40.2142 Coma scale, eyes open, spontaneous, at arrival to emergency department; R40.2252 Coma scale, best verbal response, oriented, at arrival to emergency department; R40.2362 Coma scale, best motor response, obeys commands, at arrival to emergency department; F45.8 Other somatoform disorders; I10 Essential (primary) hypertension; G20 Parkinson's disease; Z87.891 Personal history of nicotine dependence
CPT/HCPCS: 36415; 70490; 80048; 85025; 96374; J2060; Z7502

== ENCOUNTER 2019-02-13 20:46 | Inpatient (IN) | payer OTHER ==
[~2019-02-13] VITALS: Ht 157.5 cm; Wt 64.1 kg
[2019-02-13 20:53] VITALS: PULSE 90
[2019-02-13 21:26] VITALS: BP 106/64; PULSE 83; RESP 18
[2019-02-13] MEDS ORDERED: BISACODYL (EC) 5 MG TAB PO PRN (22:30)
[2019-02-13] MEDS ORDERED: SOD CHLORIDE 0.9% 1,000 ML IV SCH (22:30)
[2019-02-13] MEDS ORDERED: ACETAMINOPHEN 325 MG TAB PO PRN (23:30)
[2019-02-14] VITALS (10 sets, daily range): BP systolic 92–134; BP diastolic 55–78; PULSE 75–88; RESP 18–20
[2019-02-14] MEDS ORDERED: ASPIRIN (EC) 81 MG TAB PO SCH (09:00)
--- NOTE | 2019-02-14 12:52 | RADRPT ---
Echocardiogram Report Patient Name: DEVIKA FERREIRAPatient ID: [id number] : 1955 (64y 1m)Study Date: 02/14/2019 9:44:23 AM Gender: MAccession #: [id number] Tech: Location: [facility] Ref.Physician: RALPH RONQUILLO Height(Cm): BSA: Weight(Kg): Quality: Technically Difficult StudyOrder Physician: RALPH RONQUILLO Account #: Procedures: Echocardiographic Report: Transthoracic echocardiogram with complete 2D, M-Mode, and doppler examination. Indications: Hypotension, and Syncope. Measurements: 2D/M Mode Doppler Measurement Value Normal Range Measurement Value Normal Range LVIDd 2D 4.2 [ 4.2 - 5.8 ] cm AV Peak Wili 0.9 [ 100.0 - 170.0 ] cm/se c LVIDs 2D 3.2 [ 2.5 - 4.0 ] cm AV Peak PG 3.0 [ 2.0 - 9.0 ] mmHg LVPWd 2D 0.8 [ 0.6 - 1.0 ] cm LVOT Peak Wili 0.8 [ 70.0 - 110.0 ] cm/sec IVSd 2D 0.9 [ 0.6 - 1.0 ] cm LVOT Peak PG 3.0 [ 2.0 - 6.0 ] mmHg AoR Diam 2D 4.0 [ 2.6 - 3.4 ] cm MV E Peak Wili 0.5 [ 60.0 - 130.0 ] cm/sec EDV 2D 79.5 [ 62.0 - 150.0 ] ml MV A Peak Wili 0.6 [ 100.0 - 120.0 ] cm/se c ESV 2D 40.0 [ 21.0 - 61.0 ] ml MV E/A 0.9 [ 0.8 - 1.5 ] ratio EF 2D 49.7 [ 52.0 - 72.0 ] percent MV PHT 68.0 [ 20.0 - 100.0 ] msec LA Dimen 2D 4.0 [ 3.0 - 4.0 ] cm MV Decel Time 232 [ 104 - 258 ] msec LVOT Diam 2.1 [ 2.3 - 2.9 ] cm MV Decel [place] 2 Lat E` Wili 0.1 [ 10.0 - 15.0 ] cm/sec Lateral E/E` 4.5 [ 1.0 - 2.0 ] ratio Med E` Wili 0.1 cm/sec MV E/A 0.9 [ 0.8 - 1.5 ] ratio MVA PHT 3.2 [ 2.0 - 4.0 ] cm2 TR Peak Wili 2.2 [ 100.0 - 280.0 ] cm/se c TR Peak PG 20.0 mmHg RVSP 23.0 [ 10.0 - 36.0 ] mmHg RA Pressure 3.0 mmHg Findings: Left Ventricle: Normal left ventricular systolic function. Normal left ventricular cavity size. Normal left ventricular wall thickness. Ejection fraction is visually estimated at 55-60 %. Tissue Doppler/Mitral Doppler indices are consistent with impaired relaxation (Stage I diastolic dysfunction). Right Ventricle: Normal right ventricular size. Normal right ventricular systolic function. Left Atrium: The left atrium is normal in size. Right Atrium: The right atrium is normal in size. Mitral Valve: Normal appearance and function of the mitral valve with trace physiologic regurgitation. Aortic Valve: Normal appearance of the aortic valve. No significant aortic stenosis or insufficiency. Tricuspid Valve: There is trace tricuspid regurgitation. Pulmonic Valve: Normal pulmonic valve appearance. Pericardium: Normal pericardium with no significant pericardial effusion. Aorta: There is mild aortic root dilation. IVC: Normal size and normal respiratory collapse consistent with normal right atrial pressure. Conclusions: Normal left ventricular systolic function. Normal left ventricular cavity size. Normal left ventricular wall thickness. Ejection fraction is visually estimated at 55-60 %. Tissue Doppler/Mitral Doppler indices are consistent with impaired relaxation (Stage I diastolic dysfunction). ). Normal appearance and function of the mitral valve with trace physiologic regurgitation. There is trace tricuspid regurgitation. Electronically Signed By: Juan Muir 2019-02-14 12:52:13 PDT
[2019-02-14] MEDS ORDERED: LORAZEPAM 2 MG INJ IV ONE (13:00)
--- NOTE | 2019-02-14 13:10 | QN ---
Documentation Comment PT SEEN AND EXAMINED JOVITA BRYANT MD Feb 14, 2019 13:10
[2019-02-14] MEDS ORDERED: LORAZEPAM 1 MG TAB PO PRN (13:30)
[2019-02-14] MEDS ORDERED: ALBUTEROL HFA 8 GM INHALER INH PRN (13:30)
--- NOTE | 2019-02-14 14:41 | RADRPT ---
Vent Rate: 82 bpm RR Interval: 732 msec [place] Interval: 135 msec QRS Duration: 86 msec QT Interval: 360 msec QTC Interval: 421 msec P-R-T [place]: 43 - 40 - 58 degrees Sinus rhythm...normal P axis, V-rate 50- 99 Electronically Signed By: Roberto Rudolph
[2019-02-14] MEDS ORDERED: CARBIDOPA/LEVODOPA 50-200 (CR) TAB PO SCH (15:00)
[2019-02-14] MEDS ORDERED: TAMSULOSIN (SR) 0.4 MG CAP PO SCH (21:00)
--- NOTE | 2019-02-14 21:16 | HP ---
DATE OF ADMISSION: 02/13/2019 REASON FOR ADMISSION: The patient is a transfer from [facility] secondary to syncope. HISTORY OF PRESENT ILLNESS: This is a 64-year-old male with a past medical history of hypertension, anxiety, Parkinson's disease, history of left total knee arthroplasty, chronic osteoarthritis who has been admitted in the past secondary to accidental overdosage of Benadryl and Temazepam, was found to have a mechanical fall at home and then he was found there to be hypotensive and was brought into [facility] emergency department for further evaluation. The patient is a very poor historian. He is t briefl y able to give me some history. He said he has been using marijuana almost every day. He has not be en eating for the last 3 to 4 days. He was sitting on a chair, all of a sudden he felt very weak, hi s legs gave away, he fell and on arrival of paramedics, he was noted to be hypotensive with blood pre ssure of 84/50 and was given NS 500 mL bolus. The patient denied any chest pain, any shortness of br eath prior to this episode. The patient was brought into the [facility]. There patient's blood pressure was 112/60, heart rate was 60. The patient had labs done that showed white count of 8.0, hemoglobin of 13.5, platelet count of 147. EKG showed normal sinus rhythm, no acute ST-T wave c hanges. Labs showed a troponin of less than 0.17, BUN and creatinine within normal limit. The patie nt had a CT of the head that showed no acute intracranial hemorrhage, transcortical infarction or mas s effect, mild intracranial atherosclerosis, chronic small vessel ischemic changes, small focal calci fication left parietal lobe which may represent sequelae of prior infectious or neurocysticercosis. Patient was started on NS. UA was also done that was negative for any UTI and patient was transferre d due to insurance reasons. PAST MEDICAL HISTORY: 1. Hypertension. 2. Parkinson's disease. 3. Anxiety disorder. 4. History of urinary tract infection. 5. History of neck lipoma. 6. History of C3-C4 diffuse disk disease. 7. History of left knee replacement. ALLERGIES: NONE. PAST SURGICAL HISTORY: The patient had left knee replacement. HOME MEDICATIONS: 1. Albuterol p.r.n. wheezing. 2. Flomax 0.4. 3. Carbidopa/levodopa 50/200, two tabs 5 times daily. 4. Ativan 2 mg p.o. q.6h. p.r.n. anxiety. 5. Prilosec 40. 6. Ditropan 5 mg. SOCIAL HISTORY: The patient also has history of alcohol use, last drink was 2 to 3 days ago. Denies any history of smoking. The patient uses marijuana on every day basis. Currently lives at home wit h daughters. FAMILY HISTORY: Noncontributory. REVIEW OF SYSTEMS: The patient is a very poor historian. Denies any chest pain, any shortness of br eath. The patient has been having some weakness for the past few days, has poor p.o. intake. Patien t denies any urinary symptoms. Denied any fevers. Denies any chest pain. Denied any hematemesis, a ny melena, any bright red per rectum. PHYSICAL EXAMINATION: VITAL SIGNS: Currently, blood pressure 134/76, afebrile, heart rate 88, respirations 18. GENERAL: The patient is awake, alert, oriented x1 to 2. HEENT: Pupils equal, round, reactive to light. The patient has a left scalp and eyebrow laceration that has been sutured. The patient has active pill rolling tremors currently. NECK: Supple. HEART: Regular rate and rhythm. LUNGS: There are decreased breath sounds bilaterally. ABDOMEN: Soft, nontender, nondistended, positive normoactive bowel sounds. EXTREMITIES: No clubbing, cyanosis, or edema. The patient has a left scalp and eyebrow laceration t hat has been sutured. NEUROLOGIC: The patient has active pill rolling tremors currently. ASSESSMENT AND PLAN: This is a 64-year-old male who presented with: 1. Syncope, likely secondary to weakness, hypotension with a systolic of 84s in the field could be s econdary to dehydration/sepsis. Patient had not been eating and drinking for the past few days. 2. Parkinson's disease. 3. History of hypertension. 4. Anxiety. 5. History of schizophrenia. 6. Left upper eyebrow laceration. 7. History of neck lipoma. PLAN: At this period of time, the patient is admitted to telemetry. The patient is on IV fluids. W ill check for orthostatics. We will also call neurology consultation and cardiology consultation. T he patient will need readjustment of the Parkinson's meds. We will also do a PT eval and echo, carot id ultrasound has been pending. Rest of the treatment will depend on the patient's hospitalization c ourse. Dictated By: JOVITA DEVINE/PREMA Conf#: [id number] DID#: [id number] CC: RALPH RONQUILLO MD;*End*
[2019-02-15] MEDS ORDERED: OXYBUTYNIN 5 MG TAB PO SCH (09:00)
== END 2019-02-14 18:10 | disposition left against medical advice (07) | DRG 312 ==
LOC: 6WM 20:46
PROVIDERS: ADMIT Internal Medicine Nephrology; ATTEND Internal Medicine Nephrology
DX: I95.1 Orthostatic hypotension (principal); E86.0 Dehydration; G20 Parkinson's disease; F20.9 Schizophrenia, unspecified; I10 Essential (primary) hypertension; F41.9 Anxiety disorder, unspecified; F10.10 Alcohol abuse, uncomplicated; M50.91 Cervical disc disorder, unspecified, high cervical region; D17.0 Benign lipomatous neoplasm of skin and subcutaneous tissue of head, face and neck; Z96.652 Presence of left artificial knee joint
CPT/HCPCS: 71045; 80048; 80061; 84484; 85025; 93005; 93306; J2060; J7030

== ENCOUNTER 2019-02-23 22:42 | Emergency (ER) | payer OTHER ==
[~2019-02-23] VITALS: Ht 162.6 cm; Wt 63.6 kg
[2019-02-23 23:08] VITALS: PULSE 75; RESP 18; Ht 162.6 cm; Wt 63.6 kg
--- NOTE | 2019-02-24 01:22 | ERD ---
ER Documentation Chief Complaint Chief Complaint Throat discomfort after swallowing 2 Ativan pills this morning HPI This is a 64-year-old male who was accompanied by his daughter here in emergency department for discomfort to his throat, foreign body sensation to his throat that started this morning. Daughter stated that this started after swallowing to Ativan pills. Daughter also stated that he does not usually complain so became here because she believes he needs help. Daughter also stated that he has history of Parkinson's disease and takes carbidopa/levodopa. Denies headache, head injury, loss of consciousness, dizziness, neck pain, neck stiffness, difficulty swallowing, difficulty breathing lying flat, shoulder pain, chest pain, back pain, abdominal pain, nausea, vomiting, constipation, diarrhea, urinary symptoms, loss of bowel and bladder control, trauma, injury, falls, difficulty walking due to pain, numbness or tingling sensation, calf pain, recent travel, recent major surgery in the last 3 weeks, calf pain, recent long travel, recent exposure to any illness, recent antibiotic use in the last 3 months, fever, chills, seizures. Past medical history: Parkinson's disease. Surgical history: Denies. Social: Denies smoking, use of alcoholic beverages, use of illegal drugs. ROS All systems reviewed and are negative except as per history of present illness. Medications Home Meds Active Scripts Omeprazole* (Omeprazole*) 40 Mg Capsule., 40 MG PO DAILY, #30 CAP Prov:JORGE HAGER 02/24/19 Ondansetron Hcl* (Zofran*) 4 Mg Tablet, 4 MG PO Q8H PRN for NAUSEA AND/OR VOMITING, #30 TAB Prov:JORGE HAGER 02/24/19 Albuterol Sulfate* (Proair HFA*) 8.5 Gm Hfa.aer.ad, 2 PUFF INH Q6H PRN for WHEEZING AND SOB, #1 INHALER Prov:ARTURO MCPHERSON MD 01/29/19 Lorazepam* (Lorazepam*) 1 Mg Tablet, 1 MG PO Q8H PRN for ANXIETY, #10 TAB Prov:ARTURO MCPHERSON MD 01/29/19 Reported Medications Acetaminophen with Codeine (Acetaminophen-Cod #3 Tablet) 1 Each Tablet, 1 TAB PO NEEDED, #7 TAB 01/29/19 Omeprazole* (Omeprazole*) 40 Mg Capsule.dr, 40 MG PO DAILY, #30 CAP 01/29/19 Docusate Sodium (Col-Rite) 100 Mg Capsule, 100 MG PO TID, CAP 01/29/19 Tamsulosin Hcl* (Flomax*) 0.4 Mg Cap.er.24h, 0.4 MG PO HS, CAP 01/29/19 Oxybutynin Chloride* (Ditropan*) 5 Mg Tab, 5 MG PO DAILY, TAB 01/29/19 Carbidopa-Levodopa* (Sinemet CR*) 50-200 Mg Tabsr, 2 TAB PO 5 TIMES DAILY, TAB 01/29/19 Lorazepam* (Ativan*) 2 Mg Tablet, 2 MG PO Q6 PRN for ANXIETY, #60 TAB 01/29/19 Allergies Allergies: Coded Allergies: No Known Allergy (Unverified , 01/29/19) PMhx/Soc History of Surgery: Yes (KNEE SX) Anesthesia Reaction: No Hx Neurological Disorder: Yes (PARKINSON'S, seizures) Hx Respiratory Disorders: No Hx Cardiac Disorders: Yes (hypotension) Hx Psychiatric Problems: Yes (parkinsons, schizophernia) Hx Miscellaneous Medical Probl: No Hx Alcohol Use: No Hx Substance Use: Yes (marijuana) Hx Tobacco Use: No Physical Exam Vitals Vital Signs Date Temp Pulse Resp B/P (MAP) Pulse Ox O2 O2 Flow FiO2 Time Delivery Rate 02/23/19 100.1 75 18 100 23:08 Physical Exam Const: No acute distress Head: Atraumatic Eyes: Normal Conjunctiva. No conjunctival injection. ENT: Normal External Ears, Nose and Mouth. Bilateral ear: TM is not erythematous. No bleeding. No discharge. No hearing loss. No mastoid tenderness. Nose: No nasal flaring. No signs of obstruction. Throat/Lips: No lip swelling. No tongue swelling. Able to control tongue movement. No drooling. Uvula is in midline and non-displaced. Tonsils are + 1 with no redness and no exudates. Tolerating secretions. Patent airway. Speaks full and clear sentences. No tripoding. Neck: Full range of motion. No meningismus. Nuchal rigidity. No signs of meningeal irritation. Resp: Clear to auscultation bilaterally. No retraction noted. No accessory muscle use in breathing. Cardio: Regular rate and rhythm, no murmurs. Abd: Soft, non tender, non distended. Normal bowel sounds. No abdominal tenderness. No abdominal tenderness. Skin: No petechiae. No hives. No vesicular lesions. No skin tenting. No signs of severe dehydration. Back: No midline or flank tenderness Ext: No cyanosis, or edema Neur: Awake and alert. No new neurological deficit as confirmed with family members. Psych: Normal Mood and Affect Results 24 hrs Current Medications Medications Dose Sig/Pedro Start Time Status Last (Trade) Ordered Route PRN Stop Time Admin Dose Reason Admin Ondansetron 4 mg ONCE STAT 02/24/19 DC HCl (Zofran ODT 01:23 Odt) 02/24/19 01:25 Procedures/MDM Diagnostic tests: CT of the neck soft tissue: This case was discussed with my supervising physician, 1. Limited evaluation without IV contrast. 2. Asymmetric soft tissue fullness posterior right oropharynx and hypopharynx. This could represent a submucosal mass. Direct endoscopic evaluation is recommended to evaluate for possible malignancy. 3. No pathologic adenopathy. 4. Prior granulomatous disease. This case was discussed with my supervising physician, Dr. Syed who recommended for me to speak with the radiologist to confirm that the submucosal mass is not a foreign body. Spoke with Dr. Mancia, radiologist who confirmed that this is not a foreign body. My discussion with the radiologist was discussed with my supervising physician, Dr. Syed who agreed for me to discharge patient and have him follow-up with ENT. Treatment: Zofran p.o. P.o. challenge. Re-evaluation: No episode of emesis in the emergency department. No tongue swelling. Able to control tongue movement. Tolerating liquids by mouth. No drooling. No tripoding. Speaks full and clear sentences. No facial swelling. No signs of airway obstruction. No accessory muscle use in breathing. Lung sounds are clear to auscultation. No abdominal tenderness. Denies auditory/visual hallucinations/delusions. Not suicidal. Not homicidal. Has the capacity to decide for himself. Has good support system at home. Patient and family member stated that they are comfortable to go home. Differential diagnosis I have low suspicion for carotid aneurysm, meningitis, mastoiditis, sepsis, peritonsillar abscess, meningitis, angioedema, airway obstruction, bronchospasms. Final diagnosis: Throat pain. Prescription: Zofran. Omeprazole. Follow-up with PCP in the next 24-48 hours. PCP to refer patient to ENT in the next 24 to 48 hours if symptoms persist. Come back here in the emergency d epartment for any new symptoms or any worsening symptoms. All questions and concerns were answered. Patient and family members verbalized understanding and agreed with plan of care. Hemodynamically stable on discharge. Departure Diagnosis: Primary Impression: Throat pain Condition: Stable Additional Instructions: Follow-up with PCP in the next 24-48 hours. PCP to refer patient to ENT in the next 24 to 48 hours if symptoms persist. Come back here in the emergency department for any new symptoms or any worsening symptoms. JORGE HAGER Feb 24, 2019 01:22
[2019-02-24] MEDS ORDERED: ONDANSETRON (ODT) 4 MG TAB ODT STA (01:23)
[2019-02-24] MEDS ORDERED: OMEP40CA6 PO (04:13)
[2019-02-24] MEDS ORDERED: ONDA4TAB8 PO (04:13)
== END 2019-02-24 04:30 | disposition home or self-care (01) ==
LOC: FTE 22:42
DX: R07.0 Pain in throat (principal); G20 Parkinson's disease
CPT/HCPCS: 70490; Z7610